=== PATIENT | female | born 1935 | race Caucasian/White ===

== ENCOUNTER → 2017-03-13 | Outpatient (CLI) | payer BC ==
[~2017-03-13] MED LIST: FULV250I2 IM; GABA1CAP5 PO; LISI-786 PO; OPTIRAY 320 IV PRN; VENL37.593 PO
--- NOTE | 2017-03-13 09:23 | DIAGNOSTIC IMAGING REPORT ---
CHEST CT WITH CONTRAST CT DOSE: 513.62 mGy.cm HISTORY: Breast carcinoma BREAST CA TECHNIQUE: Multiaxial CT images of the chest were performed following the intravenous administration of contrast. COMPARISON: 04/07/2016 FINDINGS: Groundglass nodule right pulmonary apex is unchanged. There are no new or interval parenchymal nodules. The diffuse osteoblastic anesthetic bony change is stable. There are no new or interval lesions. No significant mediastinal or hilar adenopathy. Emphysematous change persists. Unchanging right chest wall lesion. IMPRESSION: Stable examination of the chest. No change from the prior exam. Electronically signed by: Solo Wallace M.D. 03/13/2017 9:22 AM Dictated Date/Time: 03/13/2017 9:14 AM
== END | disposition home or self-care (01) ==
LOC: C.CTS 09:00
PROVIDERS: ATTEND Nurse Practitioner Family
DX: C50.919 Malignant neoplasm of unspecified site of unspecified female breast (principal)

== ENCOUNTER → 2017-12-02 | Outpatient (CLI) | payer BC ==
[~2017-12-02] MED LIST changes: +GABA-1220 PO; -GABA1CAP5 PO; -OPTIRAY 320 IV PRN
--- NOTE | 2017-12-02 13:32 | DIAGNOSTIC IMAGING REPORT ---
PET/CT SKULL-THIGH CLINICAL HISTORY: BREAST CA COMPARISON STUDY: April 23, 2016 FINDINGS: The patient was injected with 12.3 mCi of F 18 labeled FDG. Following the standard induction phase, PET/CT scanning was performed from the skull base to the upper thigh region. Within the neck, there is intensely FDG avid 7 mm nodule within the left parotid gland demonstrating SUV maximum of 7.7. Activity within the neck is otherwise physiologic. Within the chest, there is no pathologic bibi or parenchymal activity. There is a slowly enlarging 1 cm partially solid and groundglass right upper lobe pulmonary nodule. This is suspicious for a low-grade adenocarcinoma. Within the abdomen and pelvis, there is no pathologic hepatic uptake. There is no pathologic adrenal gland uptake. There is physiologic urinary tract and bowel activity. There is no pathologic bibi activity within the abdomen or pelvis. There is been marked progression in the innumerable FDG avid skeletal metastasis. There is intensely FDG avid expansile mass involving the right second rib. Multiple additional rib metastases are visualized. There are multiple vertebral metastasis. 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 There is an enlarging 43 mm FDG avid left acetabular metastasis with an SUV maximum of 9.1. IMPRESSION: 1. Significant progression in the multiple skeletal metastasis. The left acetabular lytic lesion now measures 43 mm, and is at risk for a pathologic fracture 2. Slowly enlarging 1 cm partially solid and groundglass right upper lobe pulmonary nodule. This is suspicious for a low-grade adenocarcinoma 3. Intensely FDG avid 7 mm left parotid gland nodule, suspicious for a parotid neoplasm 4. No evidence of hepatic metastasis. Electronically signed by: Angel Easton M.D. 12/02/2017 1:31 PM Dictated Date/Time: 12/02/2017 1:15 PM
== END | disposition home or self-care (01) ==
LOC: C.PET 09:57
PROVIDERS: ATTEND Internal Medicine Hematology & Oncology
DX: C50.919 Malignant neoplasm of unspecified site of unspecified female breast (principal); C79.51 Secondary malignant neoplasm of bone; R91.1 Solitary pulmonary nodule

== ENCOUNTER → 2017-12-08 | Outpatient (CLI) | payer BC ==
--- NOTE | 2017-12-08 15:51 | DIAGNOSTIC IMAGING REPORT ---
LEFT FEMUR 3 VIEWS CLINICAL HISTORY: Left leg pain. Breast cancer. FINDINGS: AP, frog-leg, and lateral views of the left femur are correlated with nuclear bone scan dated 04/07/2016 and PET/CT dated 12/02/2017. The skeletal structures are osteopenic. There is a large mixed lytic and blastic lesion identified in the left bony pelvis and the left acetabulum. Tiny sclerotic lesions are seen within the left pubic ring in the left femoral head. There is no radiographic evidence of pathologic fracture. The femoral shaft is normal in appearance. A nonspecific sclerotic focus is seen in the tibial plateau. Mild arthritic change is seen in the left hip. The overlying soft tissues are within normal limits. There is atherosclerotic calcification of the femoral artery. IMPRESSION: 1. Osteopenia with no radiographic evidence of left femoral fracture. 2. A large mixed lytic and blastic lesion is identified in the left bony pelvis/acetabulum, with smaller sclerotic lesions seen in the left femoral head and throughout the bony pelvis. These are consistent with the patient's known metastatic disease and this was better characterized on the recent PET examination. Electronically signed by: Som Fernandez M.D. 12/08/2017 3:50 PM Dictated Date/Time: 12/08/2017 3:47 PM
== END | disposition home or self-care (01) ==
LOC: C.RAD 14:49
PROVIDERS: ATTEND Nurse Practitioner Family
DX: C50.919 Malignant neoplasm of unspecified site of unspecified female breast (principal); M85.852 Other specified disorders of bone density and structure, left thigh; M89.9 Disorder of bone, unspecified

== ENCOUNTER → 2018-01-25 | Outpatient (CLI) | payer BC ==
[~2018-01-25] MED LIST changes: -FULV250I2 IM; -VENL37.593 PO
--- NOTE | 2018-01-25 11:01 | DIAGNOSTIC IMAGING REPORT ---
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 Acute right shoulder pain COMPARISON: PET CT 12/02/2017 TECHNIQUE: 4 views of the right shoulder FINDINGS: The bones are moderately demineralized. Moderate degenerative changes about the glenohumeral and AC joints. Sclerotic metastatic lesion of the right second rib redemonstrated. No definite sclerotic or lucent lesion of the right humerus. No evidence of pathologic fracture. Imaged lung lo appear clear. IMPRESSION: 1. Sclerotic metastatic lesion of the right second rib redemonstrated. 2. Moderate bone demineralization and degenerative changes without acute fracture or dislocation. The above report was generated using voice recognition software. It may contain grammatical, syntax or spelling errors. Electronically signed by: Erasto Hartman M.D. 01/25/2018 11:00 AM Dictated Date/Time: 01/25/2018 10:56 AM
== END | disposition home or self-care (01) ==
LOC: C.RAD 10:40
PROVIDERS: ATTEND Nurse Practitioner Family
DX: C50.919 Malignant neoplasm of unspecified site of unspecified female breast (principal); C79.51 Secondary malignant neoplasm of bone